=== PATIENT | female | born 1965 ===

== ENCOUNTER 2016-09-27 21:08 | Emergency (ER) | payer MEDICAID ==
[~2016-09-27 21:08] MED LIST: GEODON80 M1 PO; GLUCOPHAGE1000 M1 PO; MUCINEX DM ER1 EAC1 PO; PROPRANOLOL HCL40 M2 PO; PROZAC20 M3 PO
== END 2016-09-27 21:10 ==
LOC: EDMED 21:08
DX: J06.9 Acute upper respiratory infection, unspecified (principal); E11.9 Type 2 diabetes mellitus without complications; Z90.89 Acquired absence of other organs